=== PATIENT | female | born 1950 | race Caucasian/White ===

== ENCOUNTER → 2018-08-29 | Outpatient (CLI) | payer MEDICARE, OTHER ==
[~2018-08-29] MED LIST: CALC600T4 PO; CARI350T PO; CELE200C PO; CHOL100015 PO; ESCI10TA10 PO; ESTR1PAT49 TP; FENO145T32 PO; GABA100C PO; HYDR-3240 PO; LATA2.5D2 EACHEYE; LEVO50TA PO; NITR100C56 PO; OMEP20CA9 PO; SYNTHROID PO; VALA500T4 PO
== END | disposition home or self-care (01) ==
LOC: CVU 09:38
PROVIDERS: ATTEND Internal Medicine
DX: I08.8 Other rheumatic multiple valve diseases (principal); I10 Essential (primary) hypertension; E78.5 Hyperlipidemia, unspecified
CPT/HCPCS: 93306